=== PATIENT | male | born 1995 ===

== ENCOUNTER → 2018-03-20 | Outpatient (CLI) | payer OTHER ==
[~2018-03-20] MED LIST: IOHEXOL 350 MG/ML 100 ML (OMNIPAQUE 350) VIAL IV ONE; NS 250 ML (IVPB) BAG IV ONE
--- NOTE | 2018-03-20 09:56 | Diagnostic Imaging Report ---
PROCEDURE: CT head with and without contrast. TECHNIQUE: Multiple contiguous axial images were obtained through the brain before and after the administration of intravenous contrast. DATE: March 20, 2018. COMPARISON: None. INDICATION: 22-year-old male, posttraumatic headache. FINDINGS: The ventricles and cerebral spinal fluid spaces are of normal size and configuration for the patient's age. There is no mass effect or midline shift. There is no acute intracranial hemorrhage. There is no abnormal extra-axial fluid collection. There is no identified abnormal intracranial enhancement. The frontal sinuses are hypoplastic bilaterally. The additional visualized portions of the paranasal sinuses, mastoid air cells, and middle ears are well aerated. IMPRESSION: 1. Unremarkable CT head without and with intravenous contrast. Dictated by: Dictated on workstation # [id number]
== END ==
LOC: RAD 08:48
PROVIDERS: ATTEND Nurse Practitioner Primary Care
DX: G44.321 Chronic post-traumatic headache, intractable (principal)
CPT/HCPCS: 70470